=== PATIENT | female | born 1965 | race African-American/Black ===

== ENCOUNTER 2016-09-20 08:56 | Emergency (ER) | payer OTHER ==
[2016-09-20 09:06] VITALS: BMI 28.8
[2016-09-20] MEDS ORDERED: KETOROLAC TROMETHAMINE 30 MG/1 ML VIAL IVPUSH ONE (10:40)
[2016-09-20] MEDS ORDERED: KETOROLAC TROMETHAMINE 30 MG/1 ML VIAL ONE (10:47)
--- NOTE | 2016-09-20 10:48 | PDOC ---
History of Present Illness - General History Source: Patient Exam Limitations: No Limitations - History of Present Illness Initial Comments: 09/20/16 10:49 The patient is a 50 year old female with a significant past medical history of HIV on HAART therapy, uterine fibroids with endometrial ablation (about 1 year ago), and NIDDM, presenting to the Emergency Department with abdominal pain and pelvic pain for two days. The patient reports that she woke up with abdominal pain on Sunday morning, that is diffuse through her abdomen but worst at the lower abdomen and pelvis, 8/10 in intensity. She also admits to some mild back pain. She states that she took ibuprofen 800 with some relief. She also reports a feeling of bloatedness or gassy, though she is able to pass gas and has regular bowel movements. She admits that her last bowel movement was yesterday. She admits that she had a UTI about 6 months ago with similar pain and symptoms. She denies previously having a colonoscopy. She states that her recent pap smears have been normal, and admits that her LMP was before her endometrial ablation. The patient denies diarrhea, constipation, and hematochezia. Patient denies vaginal bleeding, or discharge. Patient denies urinary frequency, urgency, and dysuria. Patient denies nausea, or vomiting. Patient denies fever, cough, and chills. PCP: Dr. Weiner at the [facility] Hx: , endometrial ablation <Lorrie Raymond - Last Filed: 09/20/16 14:10> <Braulio Parker - Last Filed: 09/20/16 16:48> - General Chief Complaint: Pain Stated Complaint: LOWER PELVIC PAIN Time Seen by Provider: 09/20/16 10:29 Past History <Lorrie Raymond - Last Filed: 09/20/16 14:10> - Past Medical History Anemia: Yes Asthma: No Cancer: No Cardiac Disorders: No CVA: No COPD: No CHF: No Dementia: No Diabetes: Yes GI Disorders: No Disorders: No HTN: No Hypercholesterolemia: No HIV: Yes Liver Disease: No Psychiatric Problems: No Seizures: No Thyroid Disease: No - Surgical History Abdominal Surgery: ("SCRAPING" 04/20) Appendectomy: No Cardiac Surgery: No Cholecystectomy: No Lung Surgery: No Neurologic Surgery: No Orthopedic Surgery: No - Immunization History Immunization Up to Date: Yes - Psycho/Social/Smoking Cessation Hx Anxiety: No Suicidal Ideation: No Smoking History: Current every day smoker Have you smoked in the past 12 months: No Number of Cigarettes Smoked Daily: 5 Cigars Per Day: 0 Information on smoking cessation initiated: No 'Breaking Loose' booklet given: 05/01/15 Hx Alcohol Use: No Drug/Substance Use Hx: No Substance Use Type: None Hx Substance Use Treatment: No <Braulio Parker - Last Filed: 09/20/16 16:48> - Past Medical History Allergies/Adverse Reactions: Allergies Allergy/AdvReac Type Severity Reaction Status Date / Time No Known Drug Allergies Allergy Verified 09/20/16 09:06 Home Medications: Ambulatory Orders Cetirizine HCl [Zyrtec -] 10 mg PO DAILY PRN #30 tablet 07/20/15 Acetaminophen [Tylenol .Extra-Strength -] 500 mg PO DAILY PRN #30 tablet Azithromycin [Zithromax 250mg Tablets -] 250 mg PO UTDICT #6 tab 06/22/16 Emtricitab/Rilpivirine/Tenofov [Complera Tablet -] 1 each PO DAILY #30 tablet Guaifenesin [Mucinex] 1 - 2 tab PO BID #30 tab.er.12h 06/22/16 Pseudoephedrine HCl [Sudafed] 1 - 2 tab PO Q6H #20 tablet 06/22/16 Aspirin [Aspirin EC] 81 mg PO DAILY #30 tablet.dr 08/07/16 Atorvastatin Ca [Lipitor] 10 mg PO HS #30 tablet 08/07/16 Ibuprofen 600 mg PO DAILY PRN #30 tablet MDD 2 08/07/16 Metformin HCl [Metformin HCl ER] 500 mg PO BID #60 tab.er.24 08/07/16 Multivitamin [Poly-Vitamin] 1 each PO DAILY #30 tab.chew 08/07/16 Tramadol HCl [Ultram] 50 mg PO BID PRN #10 tablet MDD 2 09/20/16 Review of Systems - Review of Systems Able to Perform ROS?: Yes <Lorrie Raymond - Last Filed: 09/20/16 14:10> - Review of Systems Constitutional: No: Chills, Fever Respiratory: No: Cough, Shortness of Breath Cardiac (ROS): No: Chest Pain, Lightheadedness ABD/GI: No: Constipated, Diarrhea, Nausea, Vomiting : Yes: See HPI. No: Dysuria, Frequency All Other Systems: Reviewed and Negative <Braulio Parker - Last Filed: 09/20/16 16:48> *Physical Exam - Vital Signs Last Vital Signs Temp Pulse Resp BP Pulse Ox 98.6 F 68 18 154/65 100 09/20/16 09:02 09/20/16 09:02 09/20/16 09:02 09/20/16 09:02 09/20/16 09:02 - Physical Exam Comments: 09/20/16 10:50 GENERAL: The patient is awake, alert, and fully oriented, in no acute distress. HEAD: Normal with no signs of trauma. EYES: Pupils equal, round and reactive to light, extraocular movements intact, sclera anicteric, conjunctiva clear with no pallor. ENT: Ears normal, nares patent, oropharynx clear without exudates. Moist mucous membranes. NECK: Normal range of motion, supple without lymphadenopathy, JVD, or masses. LUNGS: Breath sounds equal, clear to auscultation bilaterally. No wheeze/ crackles. HEART: Regular rate and rhythm, normal S1 and S2 without murmur or rub. ABDOMEN: Suprapubic and right pelvic discomfort to palpation. Some guarding. No cva tenderness. Nondistended. BS wnl. No rebound. No palpable masses. No hepatosplenomegaly. EXTREMITIES: Normal range of motion, no edema. No clubbing or cyanosis. No cords, erythema, or tenderness. NEUROLOGICAL: Cranial nerves II through XII grossly intact. Normal speech, normal gait. PSYCH: Normal mood, normal affect. SKIN: Warm, Dry, normal turgor, no rashes or lesions noted. <Lorrie Raymond - Last Filed: 09/20/16 14:10> - Vital Signs Last Vital Signs Temp Pulse Resp BP Pulse Ox 98.6 F 68 18 154/65 100 09/20/16 09:02 09/20/16 09:02 09/20/16 09:02 09/20/16 09:02 09/20/16 09:02 <Braulio Parker - Last Filed: 09/20/16 16:48> ED Treatment Course - LABORATORY CBC & Chemistry Diagram: 09/20/16 10:55 09/20/16 10:55 - RADIOLOGY Radiograph Interpretation: 09/20/16 14:10 Transvaginal ultrasound As reviewed by Dr. Muna Han IMPRESSION: Fibroid uterus. Thickened endometrium for a postmenopausal female with a hypoechoic density at the fundus now present measuring 8 x 6mm. Although it may represent minimal complex fluid within the endometrial cavity, a hypoechoic endometrial wall lesion cannot be excluded. 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 <Lorrie Raymond - Last Filed: 09/20/16 14:10> - LABORATORY CBC & Chemistry Diagram: 09/20/16 10:55 09/20/16 10:55 - RADIOLOGY Radiology Studies Ordered: Category Date Time Status TRANSVAGINAL ULTRASOUND US [US] Stat Ultrasound 09/20/16 10:43 Ordered <Braulio Parker - Last Filed: 09/20/16 16:48> Medical Decision Making - Medical Decision Making 09/20/16 10:55 A portion of this note was documented by scribe services under my direction. I have reviewed the details of the note, within reason, and agree with the documentation with the following case summary and management plan written by me. 50-year-old female with well-controlled HIV on HAART therapy, DM, h/o fibroids s /p ablation aunts with lower abdominal/pelvic pain for 2 days, no associated discharge/bleeding/dysuria/frequency. Pain is similar to prior UTI, reports some mid back discomfort, but no fevers or chills. No GI complaints, had a normal bowel movement yesterday. Only surgical history with . No longer has her menses fibroid ablation. Monogamous with her of 23 years. Reports Pap smears in the past were normal. Vital signs normal. Exam as noted with suprapubic tenderness to palpation 50-year-old female with lower abdominal pain, question UTI versus NUCLEAR FUELS RESEARCH ENGINEER pathology , less likely GI related. Labs, urinalysis/urine culture Transvaginal ultrasound Pain control Reassess and dispo accordingly 09/20/16 12:03 leukocytosis of 13 with normal diff, chemistries and lipase wnl, UA without evidence of infection. f/u u/s, if wnl will likely need ctap given the leukocytosis and tenderness in the absence of UTI. 09/20/16 16:35 CTAP without acute pathology. ? etiology as the hypoechoic endometrial lesion. Will f/u with [facility], no d/c or bleeding. feels much better, discomfort but no longer tender to lower abdomen. understands return criteria. <Braulio Parker - Last Filed: 09/20/16 16:48> *DC/Admit/Observation/Transfer - Attestations Scribe Attestion: 09/20/16 10:50 Documentation prepared by Lorrie Raymond, acting as medical equipment repair technician for Braulio Parker MD. <Lorrie Raymond - Last Filed: 09/20/16 14:10> <Braulio Parker - Last Filed: 09/20/16 16:48> Diagnosis at time of Disposition: Pelvic pain in female Uterine fibroid Qualifiers: Uterine leiomyoma location: unspecified location Qualified Code(s): D25.9 - Leiomyoma of uterus, unspecified - Discharge Dispostion Disposition: HOME Condition at time of disposition: Improved - Prescriptions Prescriptions: Tramadol HCl [Ultram] 50 mg PO BID PRN #10 tablet MDD 2 PRN Reason: Pain - Referrals Referrals: Rohini Ornelas NP [Primary Care Provider] - Narendra Valentin MD [Staff Physician] - - Patient Instructions Printed Discharge Instructions: DI for Uterine Fibroids Additional Instructions: Activity as tolerated. Stay hydrated. Tylenol 1000 mg every 8 hours and/or ibuprofen 600 mg every 8 hours as needed for moderate pain. Tramadol as prescribed as needed for severe pain. As discussed, there were fibroids noted in the uterus with a small wall cyst that could be the cause of your symptoms. Otherwise, the urine test and CAT scan showed no acute abnormalities. Continue your medications as previously prescribed by your physician. You should follow up with your primary doctor and [facility] as soon as possible regarding today's emergency department visit. Return to the emergency department for any new or concerning symptoms, particularly persistent or worsening pain, fevers or chills, difficulty urinating, bleeding or discharge.
[2016-09-20 11:06] LABS: BASOPHIL 0.8 % (0-2.0); EOSINOPHIL 1.7 % (0-4.5); MCH 31.7 pg (25.7-33.7); MCHC 33.1 g/dl (32.0-36.0); MEAN CELL VOLUME 95.7 fl (80-96); MEAN PLT VOLUME 8.9 fl (7.5-11.1); NEUTROPHILS 73.9 % (42.8-82.8); PLATELET COUNT 261 K/MM3 (134-434); RDW 13.7 % (11.6-15.6)
[2016-09-20 11:27] LABS: ALBUMIN 3.8 g/dl (3.4-5.0); ALK PHOS 117 U/L (45-117); ANION GAP 12 (8-16); BILIRUBIN,TOTAL 0.7 mg/dL (0.2-1.0); CO2 24 mmol/L (21-32); COCKROFT - GAULT 160.1315; CREATININE 0.5 mg/dL (0.55-1.02); GLUCOSE,RANDOM 198 mg/dL (74-106); SGOT/AST 26 U/L (15-37); SGPT/ALT 40 U/L (12-78); TOT PROT 7.8 g/dl (6.4-8.2)
[2016-09-20 11:27] LABS: URINE APPEARANCE CLEAR; URINE BILIRUBIN NEGATIVE (NEGATIVE); URINE BLOOD NEGATIVE (NEGATIVE); URINE COLOR YELLOW; URINE GLUCOSE (UA) 3+ (NEGATIVE); URINE KETONE TRACE (NEGATIVE); URINE LEUK ESTERASE NEGATIVE (NEGATIVE); URINE NITRITE NEGATIVE (NEGATIVE); URINE UROBILINOGEN NEGATIVE E.U./dl (0.2-1.0)
[2016-09-20 11:32] LABS: URINE PROTEIN 2+ (NEGATIVE)
[2016-09-20 12:25] LABS: URINE HYALINE CAST 1 /lpf; URINE MUCUS RARE; URINE RBC 1 /hpf (0-3); URINE WBC <1 /hpf (3-5)
[2016-09-20 17:25] VITALS: BP 138/85; PULSE 78; TEMP 99
== END 2016-09-20 17:02 | disposition home or self-care (01) ==
LOC: JER 08:56
PROC: 3E0333Z Introduction of Anti-inflammatory into Peripheral Vein, Percutaneous Approach (ICD-10-PCS; principal; 2016-09-20)
DX: D25.9 Leiomyoma of uterus, unspecified (principal); Z21 Asymptomatic human immunodeficiency virus [HIV] infection status; E11.9 Type 2 diabetes mellitus without complications; F17.210 Nicotine dependence, cigarettes, uncomplicated; D64.9 Anemia, unspecified
CPT/HCPCS: 36415; 74177-TC; 76830-TC; 80053; 81003; 81015; 83690; 84703; 85025; 87086; 96374; 99283-25

== ENCOUNTER 2016-10-26 09:30 | Emergency (ER) | payer OTHER ==
[2016-10-26 09:38] VITALS: BMI 30.9
--- NOTE | 2016-10-26 09:59 | PDOC ---
History of Present Illness - General Chief Complaint: Pain Stated Complaint: LOWER ABDOMEN PAIN Time Seen by Provider: 10/26/16 09:49 History Source: Patient Exam Limitations: No Limitations - History of Present Illness Travel History: No Initial Comments: 10/26/16 10:16 50 year old female wiht HIV on HAART therapy, uterine fibroids with endometrial ablation (about 1 year ago), and NIDDM, presenting to the Emergency Department with abdominal pain and pelvic pain for 3 days that is stabbing and sharp. Is primarily in her left lower quadrant, and is consistent with the pain she understands this fibroid pain. Has seen Dr. Ventura last week and was told there was no need for current intervention but patient states pain has been escalating and is not obtaining any relief with Tylenol or ibuprofen. . Last ER visit was 09/20 for abdominal cramping. Multiple tests performed including CAT scan of abdomen and ultrasound which revealed no intra-abdominal pathology other than fibroids which were 2 x 1 cm. Fever, nausea or vomiting, states bowel and bladder are within normal limits without pain or burning with urine. No history of kidney stone or UTI recently. States HIV status is well controlled with 600 T cell count and viral load undetectable most recently. 10/26/16 10:19 Timing/Duration: reports: constant, getting worse Quality: reports: moderate, sharpness, stabbing Pain Radiation: reports: other (into left buttock) Activities at Onset: reports: none Treatment Prior to Arrive: improves with: analgesics Aggravating Factors: improves with: None Alleviating Factors: improves with: None Past History - Travel Traveled outside of the country in the last 30 days: No Close contact w/someone who was outside of country & ill: No - Past Medical History Allergies/Adverse Reactions: Allergies Allergy/AdvReac Type Severity Reaction Status Date / Time No Known Drug Allergies Allergy Verified 10/26/16 09:35 Home Medications: Ambulatory Orders Cetirizine HCl [Zyrtec -] 10 mg PO DAILY PRN #30 tablet 07/20/15 Emtricitab/Rilpivirine/Tenofov [Complera Tablet -] 1 each PO DAILY #30 tablet Aspirin [Aspirin EC] 81 mg PO DAILY #30 tablet. 08/07/16 Atorvastatin Ca [Lipitor] 10 mg PO HS #30 tablet 08/07/16 Ibuprofen 600 mg PO DAILY PRN #30 tablet MDD 2 08/07/16 Metformin HCl [Metformin HCl ER] 500 mg PO BID #60 tab.er.24 08/07/16 Multivitamin [Poly-Vitamin] 1 each PO DAILY #30 tab.chew 08/07/16 Oxycodone HCl/Acetaminophen [Percocet 5-325 mg Tablet -] 1 - 2 tab PO Q4H PRN # 20 tablet MDD 4 10/26/16 Anemia: Yes Asthma: No Cancer: No Cardiac Disorders: No CVA: No COPD: No CHF: No Dementia: No Diabetes: Yes GI Disorders: No Disorders: No HTN: No Hypercholesterolemia: No HIV: Yes Liver Disease: No Psychiatric Problems: No Seizures: No Thyroid Disease: No - Surgical History Abdominal Surgery: ("SCRAPING" 04/20) Appendectomy: No Cardiac Surgery: No Cholecystectomy: No Lung Surgery: No Neurologic Surgery: No Orthopedic Surgery: No - Immunization History Immunization Up to Date: Yes - Psycho/Social/Smoking Cessation Hx Anxiety: No Suicidal Ideation: No Smoking History: Current some day smoker Have you smoked in the past 12 months: Yes Number of Cigarettes Smoked Daily: 2 Cigars Per Day: 0 Information on smoking cessation initiated: No 'Breaking Loose' booklet given: 05/01/15 Hx Alcohol Use: No Drug/Substance Use Hx: No Substance Use Type: None Hx Substance Use Treatment: No Review of Systems - Review of Systems Able to Perform ROS?: Yes Is the patient limited Moldovan proficient: Yes Constitutional: Yes: Symptoms Reported, See HPI, Malaise HEENTM: Yes: See HPI. No: Symptoms Reported Respiratory: Yes: See HPI. No: Symptoms reported, Cough ABD/GI: Yes: Symptoms Reported, See HPI, Abdominal Distended : No: Symptoms Reported Musculoskeletal: Yes: Symptoms Reported, See HPI Integumentary: No: Symptoms Reported All Other Systems: Reviewed and Negative *Physical Exam - Vital Signs Last Vital Signs Temp Pulse Resp BP Pulse Ox 98.2 F 74 18 165/94 99 10/26/16 09:35 10/26/16 09:35 10/26/16 09:35 10/26/16 09:35 10/26/16 09:35 - Physical Exam General Appearance: Yes: Nourished, Appropriately Dressed, Apparent Distress, Moderate Distress HEENT: positive: DARIEL, Normal ENT Inspection, TMs Normal, Pharynx Normal Neck: positive: Tender, Supple. negative: Lymphadenopathy (R), Lymphadenopathy (L) Respiratory/Chest: positive: Lungs Clear, Normal Breath Sounds Cardiovascular: positive: Regular Rate Gastrointestinal/Abdominal: positive: Tender (lower quadrant but abdomen is soft , no rebound or guarding, no obvious mass palpated.) Musculoskeletal: positive: Normal Inspection. negative: CVA Tenderness Extremity: positive: Normal Capillary Refill, Normal Inspection, Normal Range of Motion, Tender, Pelvis Stable Integumentary: positive: Normal Color, Dry, Warm Neurologic: positive: delivery supervisor II-XII NML intact, Fully Oriented, Alert, Normal Mood/ Affect, Normal Response, Motor Strength 09/08 ED Treatment Course - LABORATORY CBC & Chemistry Diagram: 10/26/16 10:20 10/26/16 10:20 Progress Note - Progress Note Progress Note: Left lower quadrant pain/known history of fibroids. We will obtain basic labs and ultrasound to rule out any changes and discussed with Dr. Clemens, her POOL SERVICER doctor Medical Decision Making - Medical Decision Making 10/26/16 15:53 Dr. Rivas called to discuss worsening findings of pelvic ultrasound which includes a questionable mass in the endometrial lining. Discussed this with Dr. Clemens, patient's POOL SERVICER physician who stated noted this same findings last week and patient at that time did not wish to have any further treatment or evaluation. She is agreement with pain management with Percocet and will see patient in office as soon as patient's calls for appointment to discuss further treatment and possible histoscopy. *DC/Admit/Observation/Transfer Diagnosis at time of Disposition: Pelvic pain in female Uterine fibroid Qualifiers: Uterine leiomyoma location: unspecified location Qualified Code(s): D25.9 - Leiomyoma of uterus, unspecified - Discharge Dispostion Disposition: HOME Condition at time of disposition: Stable - Referrals Referrals: Noni Clemens DO [Staff Physician] - - Patient Instructions Printed Discharge Instructions: DI for Uterine Fibroids Additional Instructions: Rest, drink lots of fluids: Teas, water, soups Marcie jasmine, carbonated beverages for the bubbles May try peppermint teas Avoid heavy , spicy or fatty foods until symptoms have resolved Continue [id number] medications for symptomatic relief Tylenol or Motrin for fever and pain Percocet for severe pain 1 tablet every 6 hours, understanding will make dizzy and sleepy Call Dr. Gunn's office tomorrow and schedule appointment for either tomorrow or next week for further evaluation and plan Return to emergency department for worsened symptoms, fevers, dehydration - Post Discharge Activity Work/School Note: Back to Work
[2016-10-26] MEDS ORDERED: KETOROLAC TROMETHAMINE 60 MG/2 ML VIAL IVPUSH ONE (10:14)
[2016-10-26] MEDS ORDERED: KETOROLAC TROMETHAMINE 30 MG/1 ML VIAL ONE (10:21)
[2016-10-26 10:36] LABS: BASOPHIL 0.7 % (0-2.0); EOSINOPHIL 1.1 % (0-4.5); MCH 32.4 pg (25.7-33.7); MCHC 34.1 g/dl (32.0-36.0); MEAN PLT VOLUME 8.3 fl (7.5-11.1); NEUTROPHILS 66.9 % (42.8-82.8); PLATELET COUNT 250 K/MM3 (134-434); RDW 13.8 % (11.6-15.6); WHITE BLOOD COUNT 10.3 K/mm3 (4.0-10.0)
[2016-10-26 11:00] LABS: ALK PHOS 110 U/L (45-117); ANION GAP 10 (8-16); BILIRUBIN,TOTAL 0.5 mg/dL (0.2-1.0); CALCIUM 9.3 mg/dL (8.5-10.1); CO2 23 mmol/L (21-32); CREATININE 0.6 mg/dL (0.55-1.02); GLUCOSE,RANDOM 216 mg/dL (74-106); SGOT/AST 34 U/L (15-37); SGPT/ALT 46 U/L (12-78); TOT PROT 8.1 g/dl (6.4-8.2)
[2016-10-26] MEDS ORDERED: SODIUM CHLORIDE 1,000 ML IV STA (11:54)
[2016-10-26 13:45] LABS: URINE APPEARANCE CLEAR; URINE BILIRUBIN NEGATIVE (NEGATIVE); URINE BLOOD NEGATIVE (NEGATIVE); URINE COLOR YELLOW; URINE GLUCOSE (UA) 3+ (NEGATIVE); URINE KETONE TRACE (NEGATIVE); URINE LEUK ESTERASE NEGATIVE (NEGATIVE); URINE NITRITE NEGATIVE (NEGATIVE); URINE UROBILINOGEN NEGATIVE E.U./dl (0.2-1.0)
[2016-10-26 13:48] LABS: URINE PROTEIN 2+ (NEGATIVE)
[2016-10-26 13:53] LABS: URINE MUCUS MANY; URINE RBC 1 /hpf (0-3); URINE WBC 1 /hpf (3-5)
[2016-10-26 16:15] VITALS: BP 126/77; PULSE 73; TEMP 98.2
== END 2016-10-26 16:15 | disposition home or self-care (01) ==
LOC: JER 09:30
PROC: 3E0337Z Introduction of Electrolytic and Water Balance Substance into Peripheral Vein, Percutaneous Approach (ICD-10-PCS; principal; 2016-10-26)
DX: D25.9 Leiomyoma of uterus, unspecified (principal); E11.9 Type 2 diabetes mellitus without complications; Z79.84 Long term (current) use of oral hypoglycemic drugs; Z21 Asymptomatic human immunodeficiency virus [HIV] infection status
CPT/HCPCS: 36415; 76705-TC; 76830-TC; 80053; 81003; 81015; 84703; 85025; 99283-25

== ENCOUNTER 2016-11-13 05:40 | Day surgery (SDC) | payer OTHER ==
[2016-11-08 15:25] VITALS: BMI 30.9
--- NOTE | 2016-11-13 09:00 | HP ---
History & Physical Update - History History: No Change - Physical Physical: No Change - Assessment Assessment: No Change - Plan Plan: No Change (pelvic pain, intracavitary uterine lesion, suspect cervical stenosis - for EUA, hysteroscopy, D&C, possible hysteroscopic myomectomy)
[2016-11-13] MEDS ORDERED: IBUPROFEN 800 MG/8 ML IJ IVPB PRN (09:01)
[2016-11-13] MEDS ORDERED: ACETAMINOPHEN 325 MG TABLET (FP) PO PRN (09:01)
[2016-11-13] MEDS ORDERED: LACTATED RINGERS SOLUTION 1,000 ML IV SCH (09:15)
[2016-11-13] MEDS ORDERED: MIDAZOLAM HCL 2 MG/2 ML SINGLE DOSE VIAL ONE ×2 (09:29→09:36)
[2016-11-13] MEDS ORDERED: ceFAZolin SODIUM 1 GM VIAL IVPB ONE (09:58)
--- NOTE | 2016-11-13 10:43 | OP ---
Operative Note - Note: Operative Date: 11/13/16 Pre-Operative Diagnosis: pelvic pain, suspected cervical stenosis, intracavitary lesion/fibroid Operation: diagnostic hysteroscopy, D&C, endometrial biopsy Findings: intracavitary scar tissue/senechiae from prior HTA endometrial ablation false passage created upon cervical dilation Post-Operative Diagnosis: Same as Pre-op Surgeon: Noni Clemens Anesthesiologist/PAPER CONSERVATOR: Nicholas Gambino Anesthesia: General (with LMA) Specimens Removed: endometrial biopsy, endometrial curettings Estimated Blood Loss (mls): 5 Operative Report Dictated: Yes
[2016-11-13] MEDS ORDERED: oxyCODONE HCL 5 MG TABLET PO PRN ×2 (10:57)
[2016-11-13] MEDS ORDERED: ONDANSETRON 4 MG/2 ML VIAL IVPUSH PRN (10:57)
[2016-11-13 12:01] VITALS: TEMP 98.4
[2016-11-13 12:04] VITALS: BP 124/84; PULSE 84
--- NOTE | 2016-11-14 12:50 | PATH ---
Surgical Pathology Report Patient Name: DUNG SPAIN [facility]. Rec. #: [id number] /Age/Gender: 1965 (Age: 50) / F Account: [id number] Location: [facility] SURGICAL Taken: 11/13/2016 Received: 11/13/2016 Reported: 11/14/2016 Physicians: Noni Clemens M.D. Specimen(s) Received A: ENDOMETRIAL BIOPSY B: ENDOMETRIAL CURETTINGS Clinical History Pelvic pain Final Diagnosis A. ENDOMETRIUM, BIOPSY: SCANT INACTIVE TO ATROPHIC ENDOMETRIUM. NO ENDOMETRIAL HYPERPLASIA OR CARCINOMA IDENTIFIED. B. ENDOMETRIUM, CURETTING: BENIGN SQUAMOUS AND ENDOCERVICAL EPITHELIUM. Comment: Recommend correlation with clinical findings and follow up as clinically indicated. Electronically Signed Sacha Celaya M.D. Gross Description A. Received in formalin labeled "endometrial biopsy," is a 0.2 cm greatest dimension velasco, irregular portion of soft tissue which is submitted in toto in one cassette. B. Received in formalin labeled "endometrial curettage," is a 0.8 x 0.5 x 0.1 cm aggregate of velasco-pink soft tissue fragments. The formalin is filtered and the specimen is entirely submitted in one cassette. DL/11/13/2016 saudi11/13/2016
--- NOTE | 2016-11-15 09:59 | OP ---
DATE OF OPERATION: 11/13/2016 PREOPERATIVE DIAGNOSES: Pelvic pain, history of endometrial ablation, concern for cervical stenosis and intracavitary lesion. POSTOPERATIVE DIAGNOSES: Pelvic pain, history of endometrial ablation, concern for cervical stenosis and intracavitary lesion. PROCEDURE: Diagnostic hysteroscopy and dilatation and curettage. SURGEON: Noni Clemens DO ASSESSMENT NURSE PRACTITIONER: None. ANESTHESIA: LMA anesthesia by Nicholas Gambino CRNA. COMPLICATIONS: None. ESTIMATED BLOOD LOSS: 5 mL DISPOSITION: Stable to PACU. COUNTS: Sponge, needle, and instrument count reported to be correct. BRIEF HISTORY AND DESCRIPTION OF PROCEDURE: Patient is a 50-year-old female who had been seen in the office with complaints of severe pelvic pain for the past several months. The patient had undergone an HTA endometrial ablation approximately 1 year prior for heavy menstrual periods. Upon ultrasound examination, there appeared to be fluid buildup in the uterine cavity and a possible intracavitary lesion. At this point, there was concern for cervical stenosis and buildup of fluid inside the uterine cavity causing pelvic pain. At which point, the patient was consented to undergo a diagnostic hysteroscopy and biopsy, possible myomectomy of the intracavitary lesion. The patient was admitted to [facility] on November 13, 2016. Consents were reconfirmed upon admission. Patient was taken back to the operating room where she was given LMA anesthesia. She was then prepped and draped in the dorsal lithotomy position, and a timeout was performed. A speculum was placed in the vagina. The anterior lip of the cervix was grasped with a tenaculum. The cervix was dilated to accommodate a diagnostic hysteroscope. The hysteroscope was placed into the uterus, and initially, it appeared that a false passage had been created with the dilator. Next, using the direct hysteroscopic dilation, entrance into the uterine cavity was achieved. Uterine synechiae and scar tissue from the prior ablation were appreciated. A small posterior cavitary lesion was noted, and a biopsy was taken. Then, the scope was removed, and a D&C was completed to obtain endometrial curettings. Specimens were all sent to Pathology for permanent evaluation. One last look with the hysteroscope revealed no evidence of uterine perforation. All instruments were removed from the vagina. Hemostasis was achieved. Sponge counts were reported to be correct, and the patient had tolerated the procedure well after she was awoken from anesthesia in the PACU after the procedure. NONI CLEMENS DO /[id number]
== END 2016-11-13 12:25 | disposition home or self-care (01) ==
LOC: JASU-SURG 05:40
PROVIDERS: ATTEND Obstetrics & Gynecology
PROC: 0UDB8ZX Extraction of Endometrium, Via Natural or Artificial Opening Endoscopic, Diagnostic (ICD-10-PCS; principal; 2016-11-13 09:00)
DX: R10.2 Pelvic and perineal pain (principal); N85.6 Intrauterine synechiae
CPT/HCPCS: 88305-TC; 94760

== ENCOUNTER 2017-05-21 16:35 | Emergency (ER) | payer OTHER ==
--- NOTE | 2017-05-21 16:47 | PDOC ---
Rapid Medical Evaluation Chief Complaint: Pain, Acute Time Seen by Provider: 05/21/17 16:41 Medical Evaluation: Allergies Allergy/AdvReac Type Severity Reaction Status Date / Time No Known Drug Allergies Allergy Verified 05/21/17 16:40 05/21/17 16:41 I have performed a brief in-person evaluation of this patient. The patient presents with a chief complaint of abdominal pain, bloating of abdomen since last night. Also reports frequency with urination and pain with urination. S/p vaginal ultrasound past sunday. Pertinent physical exam findings: NAD lungs clear bilateral +bowel sounds, generalized abdominal tenderness no cva tenderness I have ordered the following: urinalysis, urine culture, cmp, lipase, cbc with diff The patient will proceed to the ED for further evaluation.
[2017-05-21 16:48] VITALS: BMI 29.2
[2017-05-21 17:11] LABS: URINE APPEARANCE CLEAR; URINE BILIRUBIN NEGATIVE (NEGATIVE); URINE BLOOD NEGATIVE (NEGATIVE); URINE COLOR LTYELLOW; URINE GLUCOSE (UA) 1+ (NEGATIVE); URINE KETONE TRACE (NEGATIVE); URINE LEUK ESTERASE NEGATIVE (NEGATIVE); URINE NITRITE NEGATIVE (NEGATIVE); URINE PROTEIN NEGATIVE (NEGATIVE); URINE UROBILINOGEN NEGATIVE mg/dL (0.2-1.0)
[2017-05-21 17:13] LABS: BASO % 0.5 % (0-2.0); EOS % 0.6 % (0-4.5); HEMATOCRIT 44.2 % (32.4-45.2); HEMOGLOBIN 14.7 GM/dL (10.7-15.3); LYMPH % 13.3 % (8-40); MCH 32.1 pg (25.7-33.7); MCHC 33.3 g/dl (32.0-36.0); MEAN CELL VOLUME 96.3 fl (80-96); MEAN PLT VOLUME 8.9 fl (7.5-11.1); MONO % 5.8 % (3.8-10.2); NEUT % 79.8 % (42.8-82.8); PLATELET COUNT 271 K/MM3 (134-434); RBC 4.59 M/mm3 (3.60-5.2); RDW 13.1 % (11.6-15.6)
[2017-05-21 17:50] LABS: ALK PHOS 86 U/L (45-117); ANION GAP 10 (8-16); BILIRUBIN,TOTAL 0.5 mg/dL (0.2-1.0); BLOOD UREA NITROGEN 9 mg/dL (7-18); CALCIUM 8.6 mg/dL (8.5-10.1); CHLORIDE 105 mmol/L (98-107); CO2 22 mmol/L (21-32); CREATININE 0.6 mg/dL (0.55-1.02); GLUCOSE,RANDOM 185 mg/dL (74-106); POTASSIUM 4.3 mmol/L (3.5-5.1); SGOT/AST 17 U/L (15-37); SGPT/ALT 32 U/L (12-78); SODIUM 137 mmol/L (136-145); TOT PROT 7.6 g/dl (6.4-8.2)
[2017-05-21] MEDS ORDERED: HYDROmorphone HCL CARPU-JECT 1 MG/1 ML DISP.SYRIN IVPUSH ONE (18:50)
[2017-05-21] MEDS ORDERED: SODIUM CHLORIDE 1,000 ML IV STA (18:51)
[2017-05-21] MEDS ORDERED: HYDROmorphone HCL CARPU-JECT 1 MG/1 ML DISP.SYRIN ONE (19:17)
--- NOTE | 2017-05-21 21:21 | PDOC ---
History of Present Illness - General History Source: Patient Exam Limitations: No Limitations - History of Present Illness Initial Comments: 05/21/17 21:23 Patient is a 51 year old female with a significant past medical history of Anemia, Diabetes, HIV, and Blood transfusions, who presents to the ED with complaints of abdominal pain that began last night. Patient reports experiencing sudden onset of diffuse abdominal pain while at home, that showed no signs of subsiding. She reports going to PCP office last sunday where she was given an abdominal US, but states she currently does not know the results. Denies chest pain, SOB. Denies nausea, vomiting. Denies chills, fevers. Denies contact trauma to affected area. Denies any other symptoms. Allergies: None Social history: No smoking. No alcohol. No illicit drugs. Surgical history: C- section, Ectopic , Fibroid cauterization. PMD: Dr. Rohini Ornelas <Curtis Magana - Last Filed: 05/21/17 21:23> <Tia Jin - Last Filed: 05/23/17 00:29> - General Chief Complaint: Pain, Acute Stated Complaint: BACK PAIN Time Seen by Provider: 05/21/17 16:41 Past History <Curtis Magana - Last Filed: 05/21/17 21:23> - Past Medical History Anemia: Yes Asthma: No Cancer: No Cardiac Disorders: No CVA: No COPD: No CHF: No DVT: No Dementia: No Diabetes: Yes (NIDM) GI Disorders: No Disorders: No HTN: No Hypercholesterolemia: Yes Liver Disease: No Psychiatric Problems: No Seizures: No Thyroid Disease: No - Surgical History Abdominal Surgery: ("SCRAPING" 04/20) Appendectomy: No Cardiac Surgery: No Cholecystectomy: No Lung Surgery: No Neurologic Surgery: No Orthopedic Surgery: No - Immunization History Immunization Up to Date: Yes - Suicide/Smoking/Psychosocial Hx Smoking History: Never smoked Have you smoked in the past 12 months: No Number of Cigarettes Smoked Daily: 2 Cigars Per Day: 0 Information on smoking cessation initiated: No 'Breaking Loose' booklet given: 05/01/15 Hx Alcohol Use: No Drug/Substance Use Hx: No Substance Use Type: None Hx Substance Use Treatment: No <Tia Jin - Last Filed: 05/23/17 00:29> - Past Medical History Allergies/Adverse Reactions: Allergies Allergy/AdvReac Type Severity Reaction Status Date / Time No Known Drug Allergies Allergy Verified 05/21/17 16:40 Home Medications: Ambulatory Orders Atorvastatin Ca [Lipitor] 10 mg PO HS #30 tablet 04/24/17 Emtricitab/Rilpiviri/Tenof Ala [Odefsey Tablet] 1 tab PO DAILY #30 tablet Multivitamin [Poly-Vitamin] 1 each PO DAILY #30 tab.chew 04/24/17 Sitagliptin Phos/Metformin HCl [Janumet Xr 50-1,000 mg Tablet] 1 tab PO DAILY # 30 tbmp.24hr 04/24/17 Polyethylene Glycol 3350 [Miralax (For Daily Use) -] 17 gm PO DAILY PRN #1 bottle 05/22/17 Review of Systems - Review of Systems Able to Perform ROS?: Yes Comments:: 05/21/17 21:23 CONSTITUTIONAL: Absent: fever, chills, diaphoresis, generalized weakness, malaise, loss of appetite HEENT: Absent: rhinorrhea, nasal congestion, throat pain, throat swelling, difficulty swallowing, mouth swelling, ear pain, eye pain, visual Changes CARDIOVASCULAR: Absent: chest pain, syncope, palpitations, irregular heart rate, lightheadedness , peripheral edema RESPIRATORY: Absent: cough, shortness of breath, dyspnea with exertion, orthopnea, wheezing, stridor, hemoptysis GASTROINTESTINAL: Absent: abdominal pain, abdominal distension, nausea, vomiting, diarrhea, constipation, melena, hematochezia GENITOURINARY: Absent: dysuria, frequency, urgency, hesitancy, hematuria, flank pain, genital pain MUSCULOSKELETAL: +Diffuse abdominal pain. Absent: myalgia, arthralgia, joint swelling SKIN: Absent: rash, itching, pallor HEMATOLOGIC/IMMUNOLOGIC: Absent: easy bleeding, easy bruising, lymphadenopathy, frequent infections ENDOCRINE: Absent: unexplained weight gain, unexplained weight loss, heat intolerance, cold intolerance NEUROLOGIC: Absent: headache, focal weakness or paresthesias, dizziness, unsteady gait, seizure, mental status changes, bladder or bowel incontinence PSYCHIATRIC: Absent: anxiety, depression, suicidal or homicidal ideation, hallucinations. All Other Systems: Reviewed and Negative <Curtis Magana - Last Filed: 05/21/17 21:23> *Physical Exam - Vital Signs Last Vital Signs Temp Pulse Resp BP Pulse Ox 99.0 F 94 H 16 154/80 97 05/21/17 16:42 05/21/17 16:42 05/21/17 16:42 05/21/17 16:42 05/21/17 16:42 - Physical Exam Comments: 05/21/17 21:24 GENERAL: Well developed, well nourished. Awake and alert. No acute distress. HEENT: Normocephalic, atraumatic. PERRLA, EOMI. No conjunctival pallor. Sclera are non- icteric. Moist mucous membranes. Oropharynx is clear. NECK: Supple. Full ROM. No JVD. Carotid pulses 2+ and symmetric, without bruits. No thyromegaly. No lymphadenopathy. No bruise. CARDIOVASCULAR: Regular rate and rhythm. No murmurs, rubs, or gallops. Distal pulses are 2+ and symmetric. PULMONARY: No evidence of respiratory distress. Lungs clear to auscultation bilaterally. No wheezing, rales or rhonchi. ABDOMINAL: +Bilateral upper quadrant tenderness to deep palpation. +Bilateral lower quadrant tenderness to deep palpation. +bowel sounds Soft. Non-tender. Non-distended. No rebound or guarding. No organomegaly. Normoactive bowel sounds. MUSCULOSKELETAL Normal range of motion at all joints. No bony deformities or tenderness. No CVA tenderness. EXTREMITIES: No cyanosis. No clubbing. No edema. No calf tenderness. SKIN: Warm and dry. Normal capillary refill. No rashes. No jaundice. NEUROLOGICAL: Alert, awake, appropriate. Cranial nerves 2-12 intact. No deficits to light touch and temperature in face, upper extremities and lower extremities. No motor deficits in the in face, upper extremities and lower extremities. Normoreflexic in the upper and lower extremities. Normal speech. Toes are down-going bilaterally. Gait is normal without ataxia. PSYCHIATRIC: +Tearful and upset. Cooperative. Good eye contact. Appropriate mood and affect. <Curtis Magana - Last Filed: 05/21/17 21:23> - Vital Signs Last Vital Signs Temp Pulse Resp BP Pulse Ox 99.0 F 94 H 16 154/80 97 05/21/17 16:42 05/21/17 16:42 05/21/17 16:42 05/21/17 16:42 05/21/17 16:42 <DavinTia Frankel - Last Filed: 05/23/17 00:29> ED Treatment Course - LABORATORY CBC & Chemistry Diagram: 05/21/17 16:55 05/21/17 16:55 - ADDITIONAL ORDERS Additional order review: Laboratory Results 05/21/17 05/21/17 16:55 16:55 Sodium 137 Potassium 4.3 Chloride 105 Carbon Dioxide 22 Anion Gap 10 BUN 9 Creatinine 0.6 Creat Clearance w eGFR > 60 Random Glucose 185 H Calcium 8.6 Total Bilirubin 0.5 AST 17 ALT 32 Alkaline Phosphatase 86 Total Protein 7.6 Albumin 4.0 Urine Color Ltyellow Urine Appearance Clear Urine pH 7.0 D Ur Specific Badger 1.019 Urine Protein Negative Urine Glucose (UA) 1+ H Urine Ketones Trace H Urine Blood Negative Urine Nitrite Negative Urine Bilirubin Negative Urine Urobilinogen Negative Ur Leukocyte Esterase Negative 05/21/17 16:55 RBC 4.59 MCV 96.3 H MCHC 33.3 RDW 13.1 MPV 8.9 Neutrophils % 79.8 D Lymphocytes % 13.3 D Monocytes % 5.8 Eosinophils % 0.6 Basophils % 0.5 - Medications Given in the ED: ED Medications Discontinued Medications Generic Name Dose Route Start Last Admin Trade Name Freq PRN Reason Stop Dose Admin Hydromorphone HCl 0.5 mg 05/21/17 18:50 05/21/17 19:31 Dilaudid Injection - IVPUSH 05/21/17 18:51 0.5 mg ONCE ONE Administration Sodium Chloride 1,000 mls @ 1,000 mls/hr 05/21/17 18:51 05/21/17 19:32 Normal Saline - IV 05/21/17 19:50 1,000 mls/hr ASDIR STA Administration <Curtis Magana - Last Filed: 05/21/17 21:23> - LABORATORY CBC & Chemistry Diagram: 05/22/17 00:31 05/21/17 16:55 - ADDITIONAL ORDERS Additional order review: Laboratory Results 05/21/17 05/21/17 16:55 16:55 Sodium 137 Potassium 4.3 Chloride 105 Carbon Dioxide 22 Anion Gap 10 BUN 9 Creatinine 0.6 Creat Clearance w eGFR > 60 Random Glucose 185 H Calcium 8.6 Total Bilirubin 0.5 AST 17 ALT 32 Alkaline Phosphatase 86 Total Protein 7.6 Albumin 4.0 Urine Color Ltyellow Urine Appearance Clear Urine pH 7.0 D Ur Specific Badger 1.019 Urine Protein Negative Urine Glucose (UA) 1+ H Urine Ketones Trace H Urine Blood Negative Urine Nitrite Negative Urine Bilirubin Negative Urine Urobilinogen Negative Ur Leukocyte Esterase Negative 05/21/17 16:55 RBC 4.59 MCV 96.3 H MCHC 33.3 RDW 13.1 MPV 8.9 Neutrophils % 79.8 D Lymphocytes % 13.3 D Monocytes % 5.8 Eosinophils % 0.6 Basophils % 0.5 - RADIOLOGY Radiology Studies Ordered: Category Date Time Status ABDOMEN & PELVIS CT WITH CONTR [CT] Stat CT Scan 05/21/17 18:52 Taken - Medications Given in the ED: ED Medications Discontinued Medications Generic Name Dose Route Start Last Admin Trade Name Freq PRN Reason Stop Dose Admin Hydromorphone HCl 0.5 mg 05/21/17 18:50 05/21/17 19:31 Dilaudid Injection - IVPUSH 05/21/17 18:51 0.5 mg ONCE ONE Administration Sodium Chloride 1,000 mls @ 1,000 mls/hr 05/21/17 18:51 05/21/17 19:32 Normal Saline - IV 05/21/17 19:50 1,000 mls/hr ASDIR STA Administration <Tia Jin - Last Filed: 05/23/17 00:29> Medical Decision Making - Medical Decision Making 05/23/17 00:28 ct scan negative for any acute abd or pelvic abnormalities <Tia Jin - Last Filed: 05/23/17 00:29> *DC/Admit/Observation/Transfer - Attestations Scribe Attestion: 05/21/17 21:24 Documentation prepared by Curtis Magana, acting as medical center director for Tia Jin MD/DO. <Curtis Magana - Last Filed: 05/21/17 21:23> <Tia Jin - Last Filed: 05/23/17 00:29> Diagnosis at time of Disposition: Constipation - Prescriptions Prescriptions: Polyethylene Glycol 3350 [Miralax (For Daily Use) -] 17 gm PO DAILY PRN #1 bottle PRN Reason: Constipation - Referrals Referrals: Rohini Ornelas [employer] [Primary Care Provider] - - Patient Instructions - Post Discharge Activity
[2017-05-22] MEDS ORDERED: MINERAL OIL ENEMA 133 ML ENEMA PR ONE (00:04)
[2017-05-22 00:46] LABS: BASO % 0.5 % (0-2.0); EOS % 0.8 % (0-4.5); HEMATOCRIT 41.6 % (32.4-45.2); HEMOGLOBIN 13.8 GM/dL (10.7-15.3); LYMPH % 24.1 % (8-40); MCH 31.9 pg (25.7-33.7); MCHC 33.3 g/dl (32.0-36.0); MEAN PLT VOLUME 8.9 fl (7.5-11.1); MONO % 7.7 % (3.8-10.2); NEUT % 66.9 % (42.8-82.8); PLATELET COUNT 248 K/MM3 (134-434); RBC 4.33 M/mm3 (3.60-5.2); RDW 13.1 % (11.6-15.6)
[2017-05-22 01:11] VITALS: BP 152/80; PULSE 90; TEMP 98.8
== END 2017-05-22 01:15 | disposition home or self-care (01) ==
LOC: JERFT 16:35 → JER 16:35
PROC: 3E0337Z Introduction of Electrolytic and Water Balance Substance into Peripheral Vein, Percutaneous Approach (ICD-10-PCS; principal; 2017-05-21)
PROC: 3E033NZ Introduction of Analgesics, Hypnotics, Sedatives into Peripheral Vein, Percutaneous Approach (ICD-10-PCS; 2017-05-21)
DX: K59.00 Constipation, unspecified (principal); D64.9 Anemia, unspecified; E11.9 Type 2 diabetes mellitus without complications; Z79.84 Long term (current) use of oral hypoglycemic drugs; Z21 Asymptomatic human immunodeficiency virus [HIV] infection status
CPT/HCPCS: 36415; 74177-TC; 80053; 81003; 85025; 87086; 96361; 96374; 99282-25

== ENCOUNTER 2018-01-01 09:37 | Day surgery (SDC) | payer OTHER ==
[2018-01-01 10:39] VITALS: BMI 30.9
[2018-01-01 11:49] VITALS: TEMP 97.6
[2018-01-01 12:50] VITALS: BP 137/71; PULSE 62
--- NOTE | 2018-01-02 18:26 | PATH ---
Surgical Pathology Report Patient Name: DUNG SPAIN [facility]. Rec. #: [id number] /Age/Gender: 1965 (Age: 52) / F Account: [id number] Location: [facility]-ENDOSCOPY Taken: 01/01/2018 Received: 01/01/2018 Reported: 01/02/2018 Physicians: Tk Paul D.O. Specimen(s) Received BX PROXIMAL TRANSVERSE COLON POLYP Clinical History Screening, anemia, constipation Postoperative diagnosis: Colon polyp Final Diagnosis PROXIMAL TRANSVERSE COLON POLYP, POLYPECTOMY: TUBULAR ADENOMA. Electronically Signed Nicole Nicholson M.D. Gross Description Received in formalin, labeled "polyp proximal transverse colon" are 3 velasco, irregular portions of soft tissue ranging from 0.1-0.4 cm. in greatest dimension. The specimens are submitted in toto in one cassette. /01/01/2018 saudi01/01/2018
== END 2018-01-01 12:49 | disposition home or self-care (01) ==
LOC: JASU-ENDO 09:37
PROVIDERS: ATTEND Internal Medicine Gastroenterology
PROC: 0DBL8ZX Excision of Transverse Colon, Via Natural or Artificial Opening Endoscopic, Diagnostic (ICD-10-PCS; principal; 2018-01-01 09:45)
DX: Z12.11 Encounter for screening for malignant neoplasm of colon (principal); D12.3 Benign neoplasm of transverse colon
CPT/HCPCS: 82962; 84703; 88305-TC

== ENCOUNTER 2021-07-14 04:18 | Day surgery (SDC) | payer OTHER ==
[2021-07-11 15:02] VITALS: BMI 29.2
[2021-07-14 09:24] VITALS: TEMP 97.2
[2021-07-14 11:00] VITALS: BP 149/76; PULSE 65
== END 2021-07-14 10:12 | disposition home or self-care (01) ==
LOC: JASU-ENDO 04:18
PROVIDERS: ATTEND Internal Medicine Gastroenterology
PROC: 0DJD8ZZ Inspection of Lower Intestinal Tract, Via Natural or Artificial Opening Endoscopic (ICD-10-PCS; principal; 2021-07-14 08:45)
DX: Z12.11 Encounter for screening for malignant neoplasm of colon (principal); Z86.010 Personal history of colon polyps; K57.30 Diverticulosis of large intestine without perforation or abscess without bleeding; K64.8 Other hemorrhoids; E11.9 Type 2 diabetes mellitus without complications
CPT/HCPCS: 82962

== ENCOUNTER 2023-03-22 04:30 | Day surgery (SDC) | payer OTHER ==
[2023-03-20 11:38] VITALS: BMI 29.3
[2023-03-22 12:43] VITALS: BP 129/76; PULSE 82; RESP 20; TEMP 98
== END 2023-03-22 13:00 | disposition home or self-care (01) ==
LOC: JASU-ENDO 04:30
PROVIDERS: ATTEND Internal Medicine Gastroenterology
PROC: 0DB68ZX Excision of Stomach, Via Natural or Artificial Opening Endoscopic, Diagnostic (ICD-10-PCS; 2023-03-22)
PROC: 0DB78ZX Excision of Stomach, Pylorus, Via Natural or Artificial Opening Endoscopic, Diagnostic (ICD-10-PCS; 2023-03-22)
PROC: 0DB98ZX Excision of Duodenum, Via Natural or Artificial Opening Endoscopic, Diagnostic (ICD-10-PCS; principal; 2023-03-22 11:00)
DX: K29.50 Unspecified chronic gastritis without bleeding (principal); B96.81 Helicobacter pylori [H. pylori] as the cause of diseases classified elsewhere; K29.80 Duodenitis without bleeding; E11.9 Type 2 diabetes mellitus without complications; Z79.84 Long term (current) use of oral hypoglycemic drugs
CPT/HCPCS: 82962; 88305-TC; 88342-TC